=== PATIENT | female | born 1950 | race Caucasian/White ===

== ENCOUNTER 2018-04-22 05:23 | Inpatient (IN) | payer MEDICARE, OTHER ==
[2018-04-14 15:28] LABS: BASOPHILS % (AUTO) 0.4 % (0-1); EOSINOPHILS % (AUTO) 0.7 % (0-6); LYMPHOCYTES # (AUTO) 1.1 X10'3 (1.1-4.8); LYMPHOCYTES % (AUTO) 17.3 % (21-51); MEAN CORPUSCULAR HGB CONC 33.1 % (33.0-36.5); MEAN CORPUSCULAR VOLUME 90.4 FL (78-98); MEAN PLATELET VOLUME 8.3 FL (7.4-10.4); MONOCYTES # (AUTO) 0.5 X10'3 (0-0.9); MONOCYTES % (AUTO) 8.4 % (2-12); NEUTROPHILS # (AUTO) 4.4 X10'3 (1.8-7.7); NEUTROPHILS % (AUTO) 73.2 % (42-75); PRE OP HEMATOCRIT 43.4 % (35.0-45.0); PRE OP HEMOGLOBIN 14.4 g/dL (12.0-16.0); PRE OP PLATELET COUNT 272 X10'3 (140-440); RED CELL DISTRIBUTION WIDTH 14.9 % (11.5-14.5)
[2018-04-14 15:34] LABS: CLARITY,URINE SLIGHTLY CLOUDY (Clear); COLOR,URINE YELLOW (Yellow); GLUCOSE, URINE NEGATIVE (Neg); KETONES,URINE TRACE mg/dl (Neg); LEUKOCYTE ESTERASE ,URINE NEGATIVE (Neg); NITRITES, URINE NEGATIVE (Neg); OCCULT BLOOD,URINE SMALL (Neg); PROTEIN,URINE NEGATIVE (Neg); UROBILINOGEN,URINE 0.2 E.U/dL (0.2-1.0)
[2018-04-14 15:40] LABS: PRE OP PROTIME 10.4 SECONDS (9.0-12.0)
[2018-04-14 15:41] LABS: UA COLLECTION TYPE CLN CATCH MIDSTREAM
[2018-04-14 15:42] LABS: BACTERIA,URINE 1+ /HPF (Neg); CAL OXALATE CRYSTALS 4+ /HPF (NEGATIVE); MUCUS STRANDS MANY /LPF (Neg); SQUAMOUS EPITHELIAL CELL,UR MODERATE /LPF (FEW)
[2018-04-14 15:43] LABS: ALBUMIN 3.6 G/DL (3.4-5.0); ALBUMIN/GLOBULIN RATIO 1.1 (1.1-1.5); ALKALINE PHOSPHATASE 104 IU/L (46-116); BLOOD UREA NITROGEN 29 MG/DL (7-18); BUN/CREATININE RATIO 53.7 (6.6-38.0); CALCIUM 9.9 MG/DL (8.5-10.1); CHLORIDE 104 MMOL/L (99-107); CREATININE 0.54 MG/DL (0.40-0.90); PRE OP ALT 20 U/L (30-65); PRE OP ANION GAP 11 (8-16); PRE OP AST 15 U/L (10-37); PRE OP BILIRUB, TOTAL 0.4 MG/DL (0.0-1.0); PRE OP GLUCOSE 117 MG/DL (70-104); PRE OP POTASSIUM 3.7 MMOL/L (3.4-5.1); PRE OP SODIUM 142 MMOL/L (135-145); TOTAL CARBON DIOXIDE 27.2 MMOL/L (24-32); TOTAL PROTEIN 6.9 G/DL (6.4-8.2); eGFR > 90 ML/MIN
[2018-04-14 15:43] LABS: RBC,URINE 0-2 /HPF (0-2); WBC,URINE 0-4 /HPF (0-4)
[2018-04-22] VITALS (19 sets, daily range): BP systolic 80–113; BP diastolic 39–68
[~2018-04-22] VITALS: Ht 157.5 cm; Wt 74.2 kg
[~2018-04-22 05:23] MED LIST: ASPI-1265 PO; CALCIUM CARBONATE PO; CHOL10002 PO; LOSA50TA3 PO; METO25TA6 PO; NAPR250T4 PO; TUMERIC PO; ringers solution, lacted 1,000 ML IV SCH
[2018-04-22] MEDS ORDERED: cefazolin/dext.iso 2gm/50ml 50 ML IV ONE (05:30)
[2018-04-22] MEDS ORDERED: DOCUMENT DATE & TIME OF BETA-BLOCKER PO ONE (05:30)
[2018-04-22] MEDS ORDERED: famotidine 20mg tablet PO ONE (05:30)
[2018-04-22] MEDS ORDERED: VANCOMYCIN INJ 1000 MG in NORMAL SALINE 250ml IV.SOLN IV ONE (05:30)
[2018-04-22] MEDS ORDERED: LIDOcaine 1% (10mg/ml) 2ml vial ONE (05:53)
[2018-04-22] MEDS ORDERED: ROPIVAcaine 0.5% (5mg/ml) 30ml vial ONE (06:55)
[2018-04-22] MEDS ORDERED: ketorolac trometh. 30mg/ml inj. ONE (06:55)
[2018-04-22] MEDS ORDERED: tetracaine 1% (10mg/ml) pres. free inj. ONE (07:13)
[2018-04-22] MEDS ORDERED: MIDAZolam 1mg/ml 10ml vial ONE (07:15)
[2018-04-22] MEDS ORDERED: BUPIVAcaine/dex-water/PF 7.5 mg/ml 2ml ampul ONE (07:15)
[2018-04-22] MEDS ORDERED: morphine /PF 1mg/ml 10ml inj. ONE (07:15)
[2018-04-22] MEDS ORDERED: ringers solution, lacted 1,000 ML IV SCH (07:21)
[2018-04-22] MEDS ORDERED: ondansetron/PF 4mg/2ml inj IV PRN ×2 (07:25)
[2018-04-22] MEDS ORDERED: fentaNYL/PF 50MCG/1 ML 2ML syringe IV PRN ×2 (07:25)
[2018-04-22] MEDS ORDERED: morphine 4 MG/ML inj SYRINge IV PRN ×2 (07:25)
[2018-04-22] MEDS ORDERED: labetalol 20mg/4ml (5mg/ml) syringe IV PRN (07:25)
[2018-04-22] MEDS ORDERED: diphenhydrAMINE 50 mg/ml inj IV PRN (07:25)
[2018-04-22] MEDS ORDERED: hydrALAZINE 20mg/ml inj. IV PRN (07:25)
[2018-04-22] MEDS ORDERED: propofol inj 20 ML IV ONE ×2 (07:49)
[2018-04-22] MEDS ORDERED: ketorolac trometh. 30mg/ml inj. IU ONE (09:05)
--- NOTE | 2018-04-22 10:28 | NUR ---
Received from OR via , accompanied by Anesthesiologist DR DIAZ and report given by Anesthesiolgist. AWAKE AND MIRELLA PAIN. VITALS STABLE. DRESSING DI. SENSATION AT BILAT HIPS. DIA WITH CLEAR URINE.
[2018-04-22] MEDS ORDERED: mag hydrox/Alum hydrox/simeth 30ml oral suspension PO PRN (10:35)
[2018-04-22] MEDS ORDERED: bisacodyl 10mg suppository rectal RC PRN (10:35)
[2018-04-22] MEDS ORDERED: metoclopramide 5 mg/ml inj IV PRN (10:35)
[2018-04-22] MEDS ORDERED: HYDROcodone/acetaminophen 10/325mg tab PO PRN (10:35)
[2018-04-22] MEDS ORDERED: diphenhydrAMINE 25mg capsule PO PRN ×2 (10:35)
--- NOTE | 2018-04-22 11:28 | NUR ---
Report called to receiving nurse. Transferred via BED Belongings . Special Issues communicated to receiving nurse. AWQAKE AND ORIENTED. VITALS STABLE. DRESSING DI. JUAN EPAPRETTY. TO ORTHO RM 4023B AT THIS TIME.
[2018-04-22] MEDS: potassium cl 20mEq in 1/2 NS 1,000 ML IV SCH ×2 (12:38→20:33)
[2018-04-22] MEDS: gabapentin 300mg capsule PO SCH ×2 (12:38→20:33)
[2018-04-22] MEDS ORDERED: BUPIVAcaine/PF 2.5mg/ml (0.25%) 10ml vial ONE (13:32)
[2018-04-22] MEDS: ceFAZolin 1GM/D5W- ADD-VANTAGE 50 ML IV SCH (15:15)
[2018-04-22] MEDS: acetaminophen 325mg tablet PO SCH ×2 (15:15→20:33)
[2018-04-22] MEDS: ondansetron/PF 4mg/2ml inj IV PRN (15:26)
--- NOTE | 2018-04-22 18:35 | NUR ---
Patient in room ORTHO 4023. I have received report from Marlen WILSON and had the opportunity to ask questions and assume patient care.
--- NOTE | 2018-04-22 18:58 | NUR ---
Problems reprioritized. Patient report given, questions answered & plan of care reviewed with Elly WILSON.
[2018-04-22] MEDS ORDERED: vancomycin/NS 1 GM ADD-VANTAGE 250 ML IV SCH (20:00)
[2018-04-22] MEDS: sennosides 8.6mg tablet PO SCH (20:34)
[2018-04-23] MEDS: ceFAZolin 1GM/D5W- ADD-VANTAGE 50 ML IV SCH (00:19)
[2018-04-23 02:00] VITALS: BP 92/50
[2018-04-23] MEDS: acetaminophen 325mg tablet PO SCH ×4 (02:28→19:54)
[2018-04-23] MEDS: potassium cl 20mEq in 1/2 NS 1,000 ML IV SCH ×3 (05:34→20:32)
[2018-04-23] MEDS: HYDROcodone/acetaminophen 10/325mg tab PO PRN (05:34)
[2018-04-23 06:00] VITALS: BP 106/49
--- NOTE | 2018-04-23 06:44 | NUR ---
Problems reprioritized. Patient report given, questions answered & plan of care reviewed with Marlen WILSON.
[2018-04-23 06:50] LABS: BASOPHILS % (AUTO) 0.3 % (0-1); EOSINOPHILS # (AUTO) 0.1 X10'3 (0-0.9); EOSINOPHILS % (AUTO) 1.4 % (0-6); HEMATOCRIT 30.6 % (35.0-45.0); LYMPHOCYTES # (AUTO) 1.2 X10'3 (1.1-4.8); LYMPHOCYTES % (AUTO) 18.2 % (21-51); MEAN CORPUSCULAR HEMOGLOBIN 29.8 PG (27.0-31.0); MEAN CORPUSCULAR HGB CONC 32.9 % (33.0-36.5); MEAN CORPUSCULAR VOLUME 90.7 FL (78-98); MEAN PLATELET VOLUME 8.1 FL (7.4-10.4); MONOCYTES # (AUTO) 0.7 X10'3 (0-0.9); MONOCYTES % (AUTO) 10.6 % (2-12); NEUTROPHILS # (AUTO) 4.6 X10'3 (1.8-7.7); NEUTROPHILS % (AUTO) 69.5 % (42-75); PLATELET COUNT 203 X10'3 (140-440); RED BLOOD COUNT 3.37 X10'6 (4.20-5.60); RED CELL DISTRIBUTION WIDTH 14.6 % (11.5-14.5); WHITE BLOOD COUNT 6.6 X10'3 (4.5-11.0)
[2018-04-23 07:07] LABS: ANION GAP 6 (8-16); CHLORIDE 106 MMOL/L (99-107); POTASSIUM 4.2 MMOL/L (3.5-5.1); SODIUM 140 MMOL/L (135-145); TOTAL CARBON DIOXIDE 28.5 MMOL/L (24-32)
[2018-04-23] MEDS: losartan 50mg tablet PO SCH (08:00)
[2018-04-23] MEDS: metoprolol tartrate 25mg tablet PO SCH (08:00)
[2018-04-23] MEDS ORDERED: non-formulary drug ([Tumeric] 1 TAB) PO SCH (08:00)
[2018-04-23] MEDS: enoxaparin 40mg/0.4ml syringe SQ SCH (08:27)
[2018-04-23] MEDS: gabapentin 300mg capsule PO SCH ×3 (08:28→20:31)
[2018-04-23 10:00] VITALS: BP 107/45
--- NOTE | 2018-04-23 16:54 | NUR ---
Joint replacement consult: Pt seen by JOAO for written/verbal high protein ed. JOAO reviewed high protein needs for wound healing, immune strength, high protein foods, and protein supplementation options. JOAO contact information provided in case of further questions. Pt agrees to rayray CENTENO; JOAO d/w dietary. Addendum: 04/23/18 at [address] Amended: Links added.
[2018-04-23 18:00] VITALS: BP 122/47
--- NOTE | 2018-04-23 18:28 | NUR ---
Patient in room ORTHO 4023. I have received report from JEROD WILSON and had the opportunity to ask questions and assume patient care.
--- NOTE | 2018-04-23 18:37 | NUR ---
Problems reprioritized. Patient report given, questions answered & plan of care reviewed with Mateo WILSON.
[2018-04-23] MEDS: celeCOXIB 100mg capsule PO SCH (19:53)
[2018-04-23] MEDS: sennosides 8.6mg tablet PO SCH (20:31)
[2018-04-23 22:00] VITALS: BP 113/51
[2018-04-24] MEDS: acetaminophen 325mg tablet PO SCH ×2 (02:00→08:50)
--- NOTE | 2018-04-24 05:15 | NUR ---
DIA CATH. AND HEMOVAC REMOVED AND PT. TOLERATED PROCEDURE WELL.
[2018-04-24] MEDS: HYDROcodone/acetaminophen 10/325mg tab PO PRN (05:16)
[2018-04-24] MEDS: potassium cl 20mEq in 1/2 NS 1,000 ML IV SCH (05:17)
[2018-04-24 06:00] VITALS: BP 112/44
--- NOTE | 2018-04-24 06:30 | NUR ---
Problems reprioritized. Patient report given, questions answered & plan of care reviewed with SAIRA WILSON.
[2018-04-24] MEDS: ondansetron/PF 4mg/2ml inj IV PRN (07:07)
[2018-04-24 07:09] LABS: BASOPHILS % (AUTO) 0.3 % (0-1); EOSINOPHILS # (AUTO) 0.1 X10'3 (0-0.9); EOSINOPHILS % (AUTO) 1.1 % (0-6); HEMATOCRIT 30.8 % (35.0-45.0); HEMOGLOBIN 10.4 g/dl (12.0-16.0); LYMPHOCYTES # (AUTO) 1.1 X10'3 (1.1-4.8); LYMPHOCYTES % (AUTO) 14.2 % (21-51); MEAN CORPUSCULAR HEMOGLOBIN 31.3 PG (27.0-31.0); MEAN CORPUSCULAR HGB CONC 33.8 % (33.0-36.5); MEAN CORPUSCULAR VOLUME 92.6 FL (78-98); MEAN PLATELET VOLUME 8.6 FL (7.4-10.4); MONOCYTES # (AUTO) 0.9 X10'3 (0-0.9); NEUTROPHILS % (AUTO) 73.4 % (42-75); PLATELET COUNT 202 X10'3 (140-440); RED BLOOD COUNT 3.33 X10'6 (4.20-5.60); RED CELL DISTRIBUTION WIDTH 13.7 % (11.5-14.5); WHITE BLOOD COUNT 8.1 X10'3 (4.5-11.0)
[2018-04-24] MEDS: gabapentin 300mg capsule PO SCH ×3 (08:50→19:44)
[2018-04-24] MEDS: celeCOXIB 100mg capsule PO SCH ×2 (08:51→19:45)
[2018-04-24] MEDS: losartan 50mg tablet PO SCH (08:51)
[2018-04-24] MEDS: metoprolol tartrate 25mg tablet PO SCH (08:51)
[2018-04-24] MEDS: enoxaparin 40mg/0.4ml syringe SQ SCH (08:52)
[2018-04-24 10:00] VITALS: BP 131/56
--- NOTE | 2018-04-24 15:10 | NUR ---
Report given to Taniya Villalobos RN.
--- NOTE | 2018-04-24 15:10 | NUR ---
Patient in room ORTHO 4023. I have received report from whitney Jefferson RN and had the opportunity to ask questions and assume patient care.
[2018-04-24 18:00] VITALS: BP 91/52
--- NOTE | 2018-04-24 18:26 | NUR ---
Problems reprioritized. Patient report given, questions answered & plan of care reviewed with Ambreen olson RN.
--- NOTE | 2018-04-24 19:30 | NUR ---
pt stated she noticed her left eye was blurry on the left half of her vision. only left eye. "I only noticed it this morning when I was looking at the spinning operator, I couldn't read the left side with my left eye unless I turned my head. it's getting better now." no vision difficulties with right eye (no field cut with right eye vision). no other neuro defecits or nystagmus. studio operations engineer in charge notified Dr. Bridges and he requested consult with hosp.
[2018-04-24] MEDS: magnesium hydroxide 30ml (MOM) UD suspension PO PRN (19:45)
[2018-04-24] MEDS: acetaminophen 325mg tablet PO PRN (19:48)
--- NOTE | 2018-04-24 20:15 | NUR ---
I took patient to the ct scanner for r/o cva at this time via w/c.
--- NOTE | 2018-04-24 21:00 | NUR ---
I called Tiffani the stroke nurse tax services professional and informed her that patient's ct scan was positive for acute stroke and she said she will follow up on patient on Thursday. Dr. Orosco is at nurse's station and he was informed of positive acute R Occipital stroke on ct scan. Dr. Orosco said he will put orders in on patient. We have started the stroke packet interventions on patient's record.
--- NOTE | 2018-04-24 21:09 | NUR ---
The warehouse distribution manager radiologist called to inform me of the positive acute R occipital cva on ct scan for patient. I informed the radiologist that I had already informed the warehouse distribution manager hospitalist; Dr. Orosco of the findings and that the doctor was to see the patient and write orders.
[2018-04-24] MEDS ORDERED: aspirin 81mg tablet.DR PO SCH (21:10)
[2018-04-24] MEDS ORDERED: aspirin 81mg tab.chew PO ONE (21:10)
--- NOTE | 2018-04-24 21:13 | NUR ---
I called Dr. Bridges to inform him of the positive cva on the right occipital lobe and that Dr. Orosco was going to write orders for this new diagnosis.
[2018-04-24] MEDS ORDERED: normal saline 1000ml 1,000 ML IVB ONE (21:20)
[2018-04-24] MEDS: pantoprazole 40 MG vial IV SCH (21:40)
[2018-04-24] MEDS: sennosides 8.6mg tablet PO SCH (21:40)
--- NOTE | 2018-04-24 22:00 | NUR ---
I agree with Fanny's physical assessmet Addendum: 04/25/18 at 0658 by Ambreen Ford RN I agree with Fanny's physical assessment.
[2018-04-24 22:12] LABS: HEMOGLOBIN A1C 6.2 % (4.5-6.2)
[2018-04-24 22:19] LABS: CREATINE KINASE 449 U/L (26-192); PHOSPHORUS 2.1 MG/DL (2.3-4.5); TROPONIN I 0.07 NG/ML (0.0-0.05)
[2018-04-24 23:00] VITALS: BP 135/57
[2018-04-24] MEDS: normal saline 1000ml 1,000 ML IV SCH (23:00)
[2018-04-24 23:22] LABS: CLARITY,URINE CLEAR (Clear); COLOR,URINE YELLOW (Yellow); GLUCOSE, URINE NEGATIVE (Neg); KETONES,URINE NEGATIVE (Neg); LEUKOCYTE ESTERASE ,URINE NEGATIVE (Neg); NITRITES, URINE NEGATIVE (Neg); OCCULT BLOOD,URINE TRACE-INTACT (Neg); PROTEIN,URINE NEGATIVE (Neg); UA COLLECTION TYPE CLN CATCH MIDSTREAM
[2018-04-24 23:23] LABS: AMORPHOUS PHOSPHATES 1+; BACTERIA,URINE FEW /HPF (Neg); RBC,URINE 0-2 /HPF (0-2); SQUAMOUS EPITHELIAL CELL,UR FEW /LPF (FEW); WBC,URINE NONE SEEN /HPF (0-4)
[2018-04-25] VITALS (7 sets, daily range): BP systolic 110–151; BP diastolic 52–99
[2018-04-25] MEDS ORDERED: normal saline 500ml IV soln 500 ML IV ONE (00:30)
--- NOTE | 2018-04-25 03:01 | NUR ---
She had a LTHA on 04/22 so unable to lift the left leg off bed but can move it side to side. She is able to push and pull with the left foot also and sensation is intact to light touch. Addendum: 04/25/18 at 0303 by Ambreen Ford RN Amended: Links added.
[2018-04-25] MEDS: HYDROcodone/acetaminophen 10/325mg tab PO PRN (05:32)
--- NOTE | 2018-04-25 06:15 | NUR ---
Problems reprioritized. Patient report given, questions answered & plan of care reviewed with Awa WILSON.
--- NOTE | 2018-04-25 06:27 | NUR ---
received report from garrison tang
[2018-04-25] MEDS: gabapentin 300mg capsule PO SCH ×3 (07:07→20:46)
[2018-04-25] MEDS: pantoprazole 40 MG vial IV SCH (07:08)
[2018-04-25] MEDS: enoxaparin 40mg/0.4ml syringe SQ SCH (07:11)
[2018-04-25] MEDS: aspirin 325mg tablet PO SCH (08:06)
--- NOTE | 2018-04-25 08:09 | NUR ---
barcode for asprin was not fully intact when extracted from [employer] therefore unable to scan barcode into [facility], checked med prior to admin, continue to monitor
[2018-04-25 08:34] LABS: BASOPHILS % (AUTO) 0.3 % (0-1); EOSINOPHILS # (AUTO) 0.1 X10'3 (0-0.9); EOSINOPHILS % (AUTO) 1.6 % (0-6); HEMATOCRIT 30.7 % (35.0-45.0); HEMOGLOBIN 10.2 g/dl (12.0-16.0); LYMPHOCYTES % (AUTO) 13.5 % (21-51); MEAN CORPUSCULAR HEMOGLOBIN 30.6 PG (27.0-31.0); MEAN CORPUSCULAR HGB CONC 33.3 % (33.0-36.5); MEAN CORPUSCULAR VOLUME 91.8 FL (78-98); MEAN PLATELET VOLUME 8.7 FL (7.4-10.4); MONOCYTES # (AUTO) 0.8 X10'3 (0-0.9); MONOCYTES % (AUTO) 10.7 % (2-12); NEUTROPHILS # (AUTO) 5.7 X10'3 (1.8-7.7); NEUTROPHILS % (AUTO) 73.9 % (42-75); PLATELET COUNT 231 X10'3 (140-440); RED BLOOD COUNT 3.35 X10'6 (4.20-5.60); RED CELL DISTRIBUTION WIDTH 14.2 % (11.5-14.5); WHITE BLOOD COUNT 7.6 X10'3 (4.5-11.0)
[2018-04-25 08:35] LABS: PARTIAL THROMBOPLASTIN TIME 28 SECONDS (22-32); PROTHROMBIN TIME 9.9 SECONDS (9.0-12.0)
[2018-04-25 08:39] LABS: CHOL/HDL RATIO 2.6 (0.00-4.99); CHOLESTEROL 136 MG/DL (0-200); CREATINE KINASE 383 U/L (26-192); HDL CHOLESTEROL 53 MG/DL (35-60); LDL CHOLESTEROL 68 MG/DL (50-100); TRIGLYCERIDES 60 MG/DL (20-135); TROPONIN I 0.09 NG/ML (0.0-0.05)
[2018-04-25] MEDS: normal saline 1000ml 1,000 ML IV SCH (11:28)
[2018-04-25 13:05] LABS: CREATINE KINASE 360 U/L (26-192)
[2018-04-25] MEDS: acetaminophen 325mg tablet PO PRN (16:47)
--- NOTE | 2018-04-25 18:25 | NUR ---
gave report to july,
[2018-04-25] MEDS: sennosides 8.6mg tablet PO SCH (20:47)
[2018-04-26 02:00] VITALS: BP 139/65
[2018-04-26] MEDS: HYDROcodone/acetaminophen 10/325mg tab PO PRN (05:10)
[2018-04-26] MEDS: magnesium hydroxide 30ml (MOM) UD suspension PO PRN (06:10)
--- NOTE | 2018-04-26 06:23 | NUR ---
received report from nabor, rn
[2018-04-26 07:00] VITALS: BP 134/65
[2018-04-26] MEDS: gabapentin 300mg capsule PO SCH ×3 (07:29→13:26)
[2018-04-26] MEDS: aspirin 325mg tablet PO SCH (07:29)
[2018-04-26] MEDS: enoxaparin 40mg/0.4ml syringe SQ SCH (07:30)
[2018-04-26] MEDS ORDERED: pantoprazole 40mg Tablet.DR PO SCH (07:30)
[2018-04-26] MEDS ORDERED: gadopentetate dimeglumine 7.5 MMOL/15 ML syringe ONE (08:02)
[2018-04-26 11:00] VITALS: BP 127/61
--- NOTE | 2018-04-26 12:45 | NUR ---
CHANGED PT HIP DRESSING, STERI-STRIPS INTACT, ISLAND DRESSING PLACED OVER STERI-STRIPS, DRESSING CURRENTLY CDI
[2018-04-26] MEDS: acetaminophen 325mg tablet PO PRN (13:27)
--- NOTE | 2018-04-26 14:02 | NUR ---
pt d/c with instructions, understanding of instructions as well as powder packs, island dressings, tools to place her shoes and socks on as well as stroke packet information in wheelchair accompanied by and fam friend in wheelchair to private vehicle to go home and have home health and f/u w/surgeon and pcp
--- NOTE | 2018-04-26 15:40 | NUR ---
after pt d/c hospitalist had nursing staff call in a script for pt for eliquis
[2018-04-27 07:23] LABS: RPR Non Reactive (Non Reactive)
== END 2018-04-26 13:49 | disposition home health service (06) | DRG 469 ==
LOC: PAS 05:23 → ORTHO 4S 10:32 → PAS 11:48 → EDSTATUS 14:30
PROVIDERS: ADMIT Orthopaedic Surgery; ATTEND Family Medicine
PROC: 0SRB0JZ Replacement of Left Hip Joint with Synthetic Substitute, Open Approach (ICD-10-PCS; principal; 2018-04-22 07:21)
DX: M16.0 Bilateral primary osteoarthritis of hip (principal); I63.9 Cerebral infarction, unspecified; I21.A1 Myocardial infarction type 2; M62.82 Rhabdomyolysis; M87.852 Other osteonecrosis, left femur; H53.8 Other visual disturbances; G89.4 Chronic pain syndrome; E78.5 Hyperlipidemia, unspecified; E66.8 Other obesity; D64.9 Anemia, unspecified; E86.0 Dehydration; G93.9 Disorder of brain, unspecified; I10 Essential (primary) hypertension; R00.1 Bradycardia, unspecified; Z79.82 Long term (current) use of aspirin; Z79.899 Other long term (current) drug therapy; Z87.891 Personal history of nicotine dependence; Z68.29 Body mass index [BMI] 29.0-29.9, adult
CPT/HCPCS: 36415; 70450; 70544; 70553; 71045; 73502; 76001; 80051; 80053; 80061; 81001; 82550; 83036; 83735; 83880; 84100; 84443; 84484; 85025; 85610; 85730; 86592; 86885; 86900; 86901; 87070; 92616; 93005; 93306; 93970; 97110; 97116; 97161; 97530; 97535; A6250; A6258; A6446; A6449; A6454; A7000; A9579; C1758; C1776; C9113; G0378; J0690; J1644; J1650; J1885; J2250; J2274; J2405; J2704; J2765; J2795; J3370; J3490; J7030; J7120

== ENCOUNTER 2023-03-26 09:27 | Outpatient (CLI) | payer MEDICARE ==
[~2023-03-26 09:27] MED LIST changes: +LOP25T PO; +LOSA-416 PO; -LOSA50TA3 PO; -METO25TA6 PO; +NAPR-1170 PO; -NAPR250T4 PO; -ringers solution, lacted 1,000 ML IV SCH
[2023-03-26] MEDS ORDERED: GADOTERATE MEGLUMINE 7.5 MMOL/15 ML VIAL IV ONE (11:00)
== END 2023-03-26 23:59 | disposition home or self-care (01) ==
LOC: RAD 09:27
PROVIDERS: ATTEND Nurse Practitioner Family
DX: G93.89 Other specified disorders of brain (principal); J34.1 Cyst and mucocele of nose and nasal sinus; J34.89 Other specified disorders of nose and nasal sinuses; R94.01 Abnormal electroencephalogram [EEG]; D32.9 Benign neoplasm of meninges, unspecified; R56.9 Unspecified convulsions
CPT/HCPCS: 70553; 95816; A9575